=== PATIENT | female | born 1955 | race Asian ===

== ENCOUNTER 2018-06-28 10:49 | Day surgery (SDC) | payer MEDICARE, OTHER ==
[2018-06-28] MEDS ORDERED: traMADol 50 MG TAB PO (11:30)
[2018-06-28] MEDS ORDERED: ONDANSETRON 4 MG INJ IV ×2 (11:30→14:00)
[2018-06-28] MEDS: LACTATED RINGER'S 1,000 ML IV (12:11)
[2018-06-28] MEDS: SOD CHLORIDE 0.9% 1,000 ML IV (13:00)
[2018-06-28] MEDS ORDERED: TRIAMCINOLONE ACET 40 MG/ML INJ (13:42)
[2018-06-28] MEDS ORDERED: CEFAZOLIN 1 GM INJ (13:55)
[2018-06-28] MEDS ORDERED: PROPOFOL 20 ML (13:55)
[2018-06-28] MEDS ORDERED: METOCLOPRAMIDE 10 MG INJ (13:55)
[2018-06-28] MEDS ORDERED: MIDAZOLAM 1 MG/ML 2 ML INJ (13:55)
[2018-06-28] MEDS ORDERED: ONDANSETRON 4 MG INJ (13:55)
[2018-06-28] MEDS ORDERED: FENTAnyl 50 MCG/ML VIAL (13:55)
[2018-06-28] MEDS ORDERED: HYDROmorphONE 1 MG/5 ML IV SYRINGE IV ×2 (14:00)
[2018-06-28] MEDS ORDERED: hydrALAzine 20 MG INJ IV (14:00)
[2018-06-28] MEDS ORDERED: NAPROXEN 500 MG TAB PO (14:00)
[2018-06-28] MEDS ORDERED: MEPERIDINE 25 MG INJ IV (14:00)
[2018-06-28] MEDS ORDERED: DIPHENHYDRAMINE 50 MG INJ IV (14:00)
[2018-06-28] MEDS: CEFAZOLIN 2 GM/50 ML (PMX) 50 ML (FOR WT < 120 KG) IVPB (14:13)
[2018-06-28] MEDS: LIDOCAINE 1% (MPF) 30 ML INJ (14:34)
[2018-06-28] MEDS: HYDROmorphONE 1 MG/5 ML IV SYRINGE IV (15:30)
== END 2018-06-28 16:45 | disposition home or self-care (01) ==
LOC: SDS 10:49
DX: S83.282A Other tear of lateral meniscus, current injury, left knee, initial encounter (principal); M94.262 Chondromalacia, left knee; I10 Essential (primary) hypertension; E11.9 Type 2 diabetes mellitus without complications
CPT/HCPCS: 29881; 82962